=== PATIENT | male | born 1990 | race Caucasian/White ===

== ENCOUNTER 2016-07-14 15:55 | Emergency (ER) | payer OTHER ==
[~2016-07-14] VITALS: Ht 180.3 cm; Wt 68.2 kg
[2016-07-14 16:01] VITALS: BP 132/69; PULSE 69; RESP 16; O2SAT 99
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
[2016-07-14 18:39] VITALS: BP 117/61; PULSE 72; RESP 17; O2SAT 98
== END 2016-07-14 18:41 | disposition home or self-care (01) ==
LOC: SED 15:55
DX: S80.12XA Contusion of left lower leg, initial encounter (principal); S40.011A Contusion of right shoulder, initial encounter; V23.0XXA Motorcycle driver injured in collision with car, pick-up truck or van in nontraffic accident, initial encounter; Y93.55 Activity, bike riding; Y92.410 Unspecified street and highway as the place of occurrence of the external cause; Y99.8 Other external cause status; Z88.0 Allergy status to penicillin